=== PATIENT | female | born 1965 | race Two or more races ===

== ENCOUNTER 2024-04-16 20:15 | Emergency (ER) | payer OTHER ==
[~2024-04-16] VITALS: Ht 162.6 cm; Wt 111.0 kg
[2024-04-16 20:15] VITALS: BP 142/79; PULSE 90; RESP 20; O2SAT 96
[2024-04-16] MEDS: KETOROLAC TROMETH 60MG/2ML VIAL IM ONE (21:19)
== END 2024-04-16 22:10 | disposition home or self-care (01) ==
LOC: ER 20:15
DX: S83.91XA Sprain of unspecified site of right knee, initial encounter (principal); M17.11 Unilateral primary osteoarthritis, right knee; Z91.013 Allergy to seafood; Z88.6 Allergy status to analgesic agent; X58.XXXA Exposure to other specified factors, initial encounter; Y93.89 Activity, other specified; Y92.89 Other specified places as the place of occurrence of the external cause; Y99.8 Other external cause status
CPT/HCPCS: 29505; 73562; 96372; 99283; J1885